=== PATIENT | female | born 1960 | race African-American/Black ===

== ENCOUNTER 2022-03-20 18:58 | Inpatient (IN) | payer MEDICAID, OTHER ==
[~2022-03-20] VITALS: Ht 165.1 cm; Wt 74.8 kg
[2022-03-20] MEDS ORDERED: SODIUM CHLORIDE 0.9% 1,000 ML IV ONE (22:30)
[2022-03-21 00:08] LABS: BASOPHILS % 0.5 % (0.0-2.0); EOSINOPHILS % 0.6 % (0.0-5.0); HEMATOCRIT. 36.6 % (36.0-48.0); HEMOGLOBIN. 12.2 g/dL (12.0-16.0); LYMPHOCYTES % 19.4 % (20.0-50.0); MEAN CORPUSCULAR HEMOGLOBIN 28.5 pg (28.0-32.0); MEAN CORPUSCULAR VOLUME 85.6 fL (81.0-99.0); MEAN PLATELET VOLUME 7.2 fl (7.4-10.4); MONOCYTES % 6.4 % (2.0-8.0); NEUTROPHILS % 73.1 % (40.0-76.0); PLATELET 236 x1000/uL (130-400); RED BLOOD CELL COUNT 4.28 mill/uL (4.2-5.4); RED CELL DISTRIBUTION WIDTH 17.1 % (11.6-14.6)
[2022-03-21 00:13] LABS: CLARITY URINE CLEAR (CLEAR); COLOR URINE YELLOW (YELLOW); KETONES URINE NEGATIVE (NEGATIVE); LEUKOCYTE ESTERASE URINE NEGATIVE (NEGATIVE); NITRITE URINE NEGATIVE (NEGATIVE); OCCULT BLOOD URINE NEGATIVE (NEGATIVE); PH URINE 6.5 (4.5-8.0); PROTEIN URINE TRACE (NEGATIVE); SPECIFIC GRAVITY URINE 1.011 (1.005-1.030)
[2022-03-21 00:20] LABS: PARTIAL THROMBOPLASTIN TIME 26.9 sec (23.4-31.0); PROTHROMBIN TIME 10.9 sec (9.6-11.0)
[2022-03-21 00:24] LABS: CHLORIDE 107 mEq/L (98-107)
[2022-03-21 00:38] LABS: ETHANOL BLOOD < 10 mg/dL
[2022-03-21] MEDS ORDERED: POTASSIUM CHLORIDE 20MEQ TABLET SR PO ONE (00:45)
[2022-03-21 00:54] LABS: *AMPHETAMINES SCREEN URINE NEGATIVE (NEGATIVE); *BARBITURATES SCREEN URINE NEGATIVE (NEGATIVE); *BENZODIAZEPINES SCREEN URINE PRESUMTIVE POSITIVE (NEGATIVE); *COCAINE SCREEN URINE PRESUMTIVE POSITIVE (NEGATIVE); CANNABINOID URINE SCREEN NEGATIVE (NEGATIVE); METHADONE URINE SCREEN NEGATIVE (NEGATIVE); OPIATES URINE SCREEN PRESUMTIVE POSITIVE (NEGATIVE); PHENCYCLIDINE URINE SCREEN NEGATIVE (NEGATIVE)
[2022-03-21] MEDS ORDERED: ASPIRIN 81MG TABLET PO ONE (02:00)
[2022-03-21 08:30] VITALS: BP 131/86
[2022-03-21] MEDS ORDERED: ACETAMINOPHEN 325MG TABLET PO PRN (09:30)
[2022-03-21] MEDS ORDERED: DIPHENHYDRAMINE 50MG/ML VIAL IV PRN (09:30)
[2022-03-21] MEDS ORDERED: CLONIDINE 0.1MG TABLET PO PRN (09:30)
[2022-03-21] MEDS ORDERED: ONDANSETRON HCL 4MG/2ML INJ IV PRN (09:30)
[2022-03-21 10:46] VITALS: BP 131/86
[2022-03-21] MEDS ORDERED: INFLUENZA VACCINE 05/PF 0.5 ML SYRINGE IM ONE (11:00)
[2022-03-21 12:21] VITALS: BP 129/82
[2022-03-21 16:26] VITALS: BP 123/84
[2022-03-21] MEDS: IPRATROPIUM/ALBUTEROL 0.5-3(2.5)MG/3ML NEB HHN PRN (17:13)
[2022-03-21 20:00] VITALS: BP 130/83
[2022-03-21 23:55] VITALS: BP 124/68
[2022-03-22 03:57] VITALS: BP 175/93
[2022-03-22 07:26] LABS: BASOPHILS % 0.4 % (0.0-2.0); EOSINOPHILS % 4.3 % (0.0-5.0); HEMATOCRIT. 38.5 % (36.0-48.0); LYMPHOCYTES % 29.7 % (20.0-50.0); MEAN CORPUSCULAR HEMOGLOBIN 29.1 pg (28.0-32.0); MEAN CORPUSCULAR VOLUME 86.1 fL (81.0-99.0); MEAN PLATELET VOLUME 7.3 fl (7.4-10.4); MONOCYTES % 8.1 % (2.0-8.0); NEUTROPHILS % 57.5 % (40.0-76.0); PLATELET 245 x1000/uL (130-400); RED BLOOD CELL COUNT 4.47 mill/uL (4.2-5.4); RED CELL DISTRIBUTION WIDTH 16.9 % (11.6-14.6)
[2022-03-22 08:00] VITALS: BP 143/97
[2022-03-22] MEDS: IPRATROPIUM/ALBUTEROL 0.5-3(2.5)MG/3ML NEB HHN PRN (08:25)
[2022-03-22 10:42] LABS: CHLORIDE 104 mEq/L (98-107)
[2022-03-22 12:00] VITALS: BP 113/60
[2022-03-22] MEDS ORDERED: BENZONATATE 100MG CAPSULE PO PRN (13:15)
[2022-03-22] MEDS: GUAIFENESIN 600MG ER TABLET PO SCH ×2 (13:17→21:56)
[2022-03-22 14:39] LABS: AMYLASE 50 IU/L (25-115)
[2022-03-22 16:00] VITALS: BP 157/89
[2022-03-22] MEDS: METHYLPREDNISOLONE SOD SUCC 125 MG/2 ML VIAL IV SCH (17:20)
[2022-03-22 20:00] VITALS: BP 144/85
[2022-03-22] MEDS: IPRATROPIUM/ALBUTEROL 0.5-3(2.5)MG/3ML NEB HHN SCH (20:02)
[2022-03-22] MEDS ORDERED: SULFAMETHOXAZOLE/TRIMETHOPRIM 800/160MG TABLET PO SCH (22:00)
[2022-03-23] VITALS: BP 150/88
[2022-03-23] MEDS: IPRATROPIUM/ALBUTEROL 0.5-3(2.5)MG/3ML NEB HHN SCH (01:20)
[2022-03-23] MEDS: METHYLPREDNISOLONE SOD SUCC 125 MG/2 ML VIAL IV SCH ×2 (01:21→05:34)
[2022-03-23 04:45] VITALS: BP 139/89
[2022-03-23 08:35] LABS: BASOPHILS % 0.4 % (0.0-2.0); HEMATOCRIT. 41.2 % (36.0-48.0); HEMOGLOBIN. 13.9 g/dL (12.0-16.0); LYMPHOCYTES % 13.3 % (20.0-50.0); MEAN CORPUSCULAR HEMOGLOBIN 28.4 pg (28.0-32.0); MEAN CORPUSCULAR VOLUME 83.9 fL (81.0-99.0); MEAN PLATELET VOLUME 7.6 fl (7.4-10.4); MONOCYTES % 4.5 % (2.0-8.0); NEUTROPHILS % 81.8 % (40.0-76.0); PLATELET 302 x1000/uL (130-400); RED BLOOD CELL COUNT 4.91 mill/uL (4.2-5.4); RED CELL DISTRIBUTION WIDTH 16.8 % (11.6-14.6)
[2022-03-23 10:36] LABS: CHLORIDE 103 mEq/L (98-107)
== END 2022-03-23 10:02 | disposition left against medical advice (07) | DRG 816 ==
LOC: ER 18:58 → 8WST 03-21 03:18 → EDBEDREQTM 03-21 03:20 → EDBEDREQ 03-21 03:20
PROVIDERS: ADMIT Internal Medicine; ATTEND Internal Medicine
DX: T40.5X1A Poisoning by cocaine, accidental (unintentional), initial encounter (principal); J96.00 Acute respiratory failure, unspecified whether with hypoxia or hypercapnia; G92.8 Other toxic encephalopathy; J68.0 Bronchitis and pneumonitis due to chemicals, gases, fumes and vapors; K83.8 Other specified diseases of biliary tract; E87.6 Hypokalemia; I10 Essential (primary) hypertension; F17.210 Nicotine dependence, cigarettes, uncomplicated; F14.10 Cocaine abuse, uncomplicated; Y92.89 Other specified places as the place of occurrence of the external cause; Z53.29 Procedure and treatment not carried out because of patient's decision for other reasons
CPT/HCPCS: 36415; 71045; 76700; 80048; 80053; 80076; 80305; 80320; 81003; 82150; 83880; 84484; 85025; 90686; 93005; 93970; 94640; 99285; J2930; J7030; G0480

== ENCOUNTER 2023-10-18 16:07 | Emergency (ER) | payer MEDICAID, OTHER ==
[~2023-10-18] VITALS: Ht 167.6 cm; Wt 70.0 kg
[2023-10-18 16:07] VITALS: O2SAT 100
[2023-10-18] MEDS ORDERED: PREDNISONE 20MG TABLET PO STA (16:37)
[2023-10-18] MEDS: ALBUTEROL (0.083%) 2.5MG/3ML NEB HHN STA (17:16)
[2023-10-18] MEDS: IPRATROPIUM BROMIDE (0.02%) 0.5MG/2.5ML NEB HHN STA (17:16)
[2023-10-18 18:53] LABS: CHLORIDE 103 mEq/L (98-107); POTASSIUM 4.9 mEq/L (3.5-5.1); SODIUM 142 mEq/L (136-145)
[2023-10-18 18:54] LABS: CARBON DIOXIDE 36 mEq/L (21-32)
[2023-10-18 18:55] LABS: CALCIUM 9.7 mg/dL (8.7-10.4)
[2023-10-18 18:59] LABS: CREATININE 0.8 mg/dL (0.6-1.0); GLUCOSE 91 mg/dL (70-105); UREA NITROGEN BLOOD 13 mg/dL (9-23)
[2023-10-18 19:00] LABS: TROPONIN I HIGH SENSITIVITY 4 ng/L (3.0-34)
[2023-10-18] MEDS: PREDNISONE 20MG TABLET PO NR (19:03)
[2023-10-18 19:22] LABS: HEMATOCRIT. 43.7 % (36.0-48.0); HEMOGLOBIN. 14.8 g/dL (12.0-16.0); MEAN CORPUSCULAR HEMOGLOBIN 28.5 pg (28.0-32.0); MEAN CORPUSCULAR HGB CONC 33.9 g/dL (31.0-37.0); MEAN PLATELET VOLUME 8.6 fl (7.4-10.4); PLATELET 259 x1000/uL (130-400); RED CELL DISTRIBUTION WIDTH 16.2 % (11.6-14.6); WHITE BLOOD COUNT 7.5 x1000/uL (4.5-11.0)
[2023-10-18 19:23] LABS: DIFFERENTIAL COMMENT 1
[2023-10-18 19:53] VITALS: BP 106/54; PULSE 77; RESP 14; TEMP 97.8
[2023-10-18] MEDS ORDERED: P50 MT (19:54)
[2023-10-18] MEDS ORDERED: ALBU6.7H15 INH (19:54)
[2023-10-18 20:56] LABS: ANISOCYTOSIS 1+; PLATELET ESTIMATE NORMAL
== END 2023-10-18 20:02 | disposition home or self-care (01) ==
LOC: ER 16:07
DX: J44.1 Chronic obstructive pulmonary disease with (acute) exacerbation (principal); F14.10 Cocaine abuse, uncomplicated; F12.10 Cannabis abuse, uncomplicated; I10 Essential (primary) hypertension
CPT/HCPCS: 80048; 83880; 85025; 84484; 36415; 71045; 99285; J7512; Z7610

== ENCOUNTER 2024-10-24 09:05 | Inpatient (IN) | payer MEDICAID, OTHER ==
[~2024-10-24] VITALS: Ht 167.6 cm; Wt 58.5 kg
[2024-10-24] MEDS: IPRATROPIUM/ALBUTEROL 0.5-3(2.5)MG/3ML NEB HHN SCH (04:20)
[~2024-10-24 09:05] MED LIST: ALBU6.7H15 INH; P50 MT
[2024-10-24] MEDS: SODIUM CHLORIDE 0.9% (SEPSIS BOLUS) IV ONE (09:36)
[2024-10-24 09:45] LABS: BASOPHILS % 0.2 % (0.0-2.0); HEMATOCRIT. 37.1 % (36.0-48.0); HEMOGLOBIN. 11.9 g/dL (12.0-16.0); LYMPHOCYTES % 7.6 % (20.0-50.0); MEAN CORPUSCULAR HEMOGLOBIN 27.2 pg (28.0-32.0); MEAN CORPUSCULAR HGB CONC 32.2 g/dL (31.0-37.0); MEAN CORPUSCULAR VOLUME 84.5 fL (81.0-99.0); MONOCYTES % 5.6 % (2.0-8.0); NEUTROPHILS % 86.6 % (40.0-76.0); PLATELET 204 x1000/uL (130-400); RED BLOOD CELL COUNT 4.39 mill/uL (4.2-5.4); RED CELL DISTRIBUTION WIDTH 19.5 % (11.6-14.6); WHITE BLOOD COUNT 9.2 x1000/uL (4.5-11.0)
[2024-10-24] MEDS: PIPERACILLIN/TAZO 3.375G/50ML 50 ML IV ONE (09:53)
[2024-10-24 09:54] LABS: CHLORIDE 105 mEq/L (98-107); POTASSIUM 4.7 mEq/L (3.5-5.1); SODIUM 145 mEq/L (136-145)
[2024-10-24 09:55] LABS: CALCIUM 9.3 mg/dL (8.7-10.4); CARBON DIOXIDE 34 mEq/L (21-32)
[2024-10-24 10:00] LABS: GLUCOSE 138 mg/dL (70-105); TROPONIN I HIGH SENSITIVITY 29 ng/L (3.0-34)
[2024-10-24 10:01] LABS: UREA NITROGEN BLOOD 20 mg/dL (9-23)
[2024-10-24 10:02] LABS: ALANINE AMINOTRANSFERASE 59 IU/L (10-49); ALBUMIN 3.8 g/dL (3.2-4.8); ASPARTATE AMINOTRANSFERASE 70 IU/L (<34); BILIRUBIN DIRECT 0.1 mg/dL (<=3.0)
[2024-10-24 10:03] LABS: BILIRUBIN TOTAL 0.4 mg/dL (0.1-1.0); PROTEIN TOTAL 6.4 g/dL (6.0-8.3)
[2024-10-24 10:09] LABS: CREATININE 2.1 mg/dL (0.6-1.0)
[2024-10-24 10:10] LABS: LACTIC ACID 3.3 mmol/L (0.4-2.0)
[2024-10-24] MEDS: VANCOMYCIN 1G PREMIX 200 ML IV ONE (10:33)
[2024-10-24] MEDS ORDERED: ONDANSETRON HCL 4MG/2ML INJ IV PRN (11:45)
[2024-10-24] MEDS ORDERED: ACETAMINOPHEN 325MG TABLET PO PRN (11:45)
[2024-10-24] MEDS ORDERED: IPRATROPIUM/ALBUTEROL 0.5-3(2.5)MG/3ML NEB HHN PRN (11:45)
[2024-10-24] MEDS ORDERED: CLONIDINE 0.1MG TABLET PO PRN (11:45)
[2024-10-24] MEDS ORDERED: DOCUSATE SODIUM 100MG CAPSULE PO PRN (11:45)
[2024-10-24 12:27] VITALS: BP 92/66; PULSE 58; RESP 18; TEMP 36.6
[2024-10-24 12:30] VITALS: BP 92/66; PULSE 58; RESP 18; TEMP 36.6; O2SAT 99
[2024-10-24] MEDS: SODIUM CHLORIDE 0.45% 1,000 ML IV SCH (13:28)
[2024-10-24] MEDS: PANTOPRAZOLE SODIUM 40 MG/VIAL IV SCH (13:28)
[2024-10-24 16:25] VITALS: BP 118/76; PULSE 84; RESP 18; TEMP 36.6; O2SAT 98
[2024-10-24 17:39] LABS: CREATINE KINASE MB FRACTION 80.9 ng/mL (0.5-3.6); ETHANOL BLOOD < 10 mg/dL (<10)
[2024-10-24 17:44] LABS: T4 FREE 0.89 ng/dL (0.89-1.76); THYROID STIMULATING HORMONE 0.16 uIU/mL (0.55-4.78)
[2024-10-24 18:02] LABS: COLOR URINE YELLOW (YELLOW); GLUCOSE URINE NEGATIVE (NEGATIVE); KETONES URINE NEGATIVE (NEGATIVE); LEUKOCYTE ESTERASE URINE NEGATIVE (NEGATIVE); NITRITE URINE NEGATIVE (NEGATIVE); OCCULT BLOOD URINE 3+ (NEGATIVE); PROTEIN URINE 1+ (NEGATIVE); SPECIFIC GRAVITY URINE 1.015 (1.005-1.030); UROBILINOGEN URINE 0.2 E.U./dL (0.2-1.0)
[2024-10-24 18:21] LABS: *AMPHETAMINES SCREEN URINE NEGATIVE (NEGATIVE); *BARBITURATES SCREEN URINE NEGATIVE (NEGATIVE); *BENZODIAZEPINES SCREEN URINE NEGATIVE (NEGATIVE); *COCAINE SCREEN URINE PRESUMPTIVE POSITIVE (NEGATIVE); CANNABINOID URINE SCREEN NEGATIVE (NEGATIVE); ECSTASY MDMA SCREEN URINE NEGATIVE (NEGATIVE); METHADONE URINE SCREEN NEGATIVE (NEGATIVE); OPIATES URINE SCREEN PRESUMPTIVE POSITIVE (NEGATIVE); PHENCYCLIDINE URINE SCREEN NEGATIVE (NEGATIVE)
[2024-10-24 18:23] LABS: CLARITY URINE HAZY (CLEAR)
[2024-10-24 18:24] LABS: RBC URINE NONE SEEN /hpf (0-2); WBC URINE 0-2 /hpf (0-2)
[2024-10-24 18:25] LABS: BACTERIA URINE TRACE; SQUAMOUS EPITHELIAL CELL URINE 1+ /lpf (RARE/1+)
[2024-10-24 18:26] LABS: MUCUS URINE TRACE /lpf (< = 2+)
[2024-10-24] MEDS: ASPIRIN 81MG TABLET PO SCH (18:45)
[2024-10-24] MEDS: ENOXAPARIN 60MG/0.6ML SYR SUBCUT SCH (18:46)
[2024-10-24 20:00] VITALS: BP 127/80; PULSE 60; RESP 17; TEMP 37.7; O2SAT 100
[2024-10-25] VITALS: BP 129/59; PULSE 65; RESP 17; TEMP 37.2; O2SAT 96
[2024-10-25 00:45] LABS: CREATINE KINASE MB FRACTION 62.5 ng/mL (0.5-3.6)
[2024-10-25 04:00] VITALS: BP 145/82; PULSE 105; RESP 18; TEMP 37.2; O2SAT 95
[2024-10-25] MEDS: ACETAMINOPHEN 325MG TABLET PO PRN (06:20)
[2024-10-25 06:35] LABS: BASOPHILS % 1.1 % (0.0-2.0); EOSINOPHILS % 0.8 % (0.0-5.0); HEMATOCRIT. 38.4 % (36.0-48.0); HEMOGLOBIN. 12.5 g/dL (12.0-16.0); LYMPHOCYTES % 33.5 % (20.0-50.0); MEAN CORPUSCULAR HEMOGLOBIN 27.5 pg (28.0-32.0); MEAN CORPUSCULAR HGB CONC 32.4 g/dL (31.0-37.0); MEAN CORPUSCULAR VOLUME 84.7 fL (81.0-99.0); MEAN PLATELET VOLUME 7.4 fl (7.4-10.4); MONOCYTES % 7.1 % (2.0-8.0); NEUTROPHILS % 57.5 % (40.0-76.0); PLATELET 186 x1000/uL (130-400); RED BLOOD CELL COUNT 4.53 mill/uL (4.2-5.4); RED CELL DISTRIBUTION WIDTH 19.1 % (11.6-14.6); WHITE BLOOD COUNT 5.5 x1000/uL (4.5-11.0)
[2024-10-25 06:50] LABS: CALCIUM 8.4 mg/dL (8.7-10.4); CARBON DIOXIDE 31 mEq/L (21-32); CHLORIDE 103 mEq/L (98-107); POTASSIUM 4.3 mEq/L (3.5-5.1); SODIUM 140 mEq/L (136-145)
[2024-10-25 06:55] LABS: CREATININE 0.9 mg/dL (0.6-1.0); GLUCOSE 115 mg/dL (70-105); PROTEIN TOTAL 5.7 g/dL (6.0-8.3)
[2024-10-25 06:56] LABS: LDL CHOLESTEROL 100 mg/dL (5-100); TRIGLYCERIDE 97 mg/dL (0-150); UREA NITROGEN BLOOD 16 mg/dL (9-23)
[2024-10-25 06:57] LABS: ALANINE AMINOTRANSFERASE 204 IU/L (10-49); ALBUMIN 3.3 g/dL (3.2-4.8); ASPARTATE AMINOTRANSFERASE 274 IU/L (<34); CHOLESTEROL 182 mg/dL (<200); HDL CHOLESTEROL 62 mg/dL (>65); INR 1.1; PROTHROMBIN TIME 11.8 sec (9.6-11.0)
[2024-10-25 06:58] LABS: BILIRUBIN DIRECT 0.1 mg/dL (<=3.0); BILIRUBIN TOTAL 0.4 mg/dL (0.1-1.0); PHOSPHORUS 1.7 mg/dL (2.5-4.9)
[2024-10-25 08:00] VITALS: BP 140/92; PULSE 92; RESP 18; TEMP 36.7; O2SAT 96
[2024-10-25 12:00] VITALS: BP 143/85; PULSE 96; RESP 18; TEMP 36.9; O2SAT 95
[2024-10-25 16:00] VITALS: BP 131/96; PULSE 95; RESP 19; TEMP 36.6; O2SAT 97
[2024-10-25 20:00] VITALS: BP 148/91; PULSE 80; RESP 18; TEMP 36.6; O2SAT 100
[2024-10-25] MEDS: SODIUM PHOSPHATE 10 MMOL in DEXT 5% WATER 246.6667 ML IV SCH (20:05)
[2024-10-25] MEDS: MAGNESIUM 2 G PREMIX 50 ML IV SCH (20:05)
[2024-10-25 20:59] LABS: HEPATITIS B SURFACE ANTIGEN NEGATIVE (Negative)
[2024-10-25 21:21] LABS: HEPATITIS A AB IGM NEGATIVE (Negative); HEPATITIS B CORE AB IGM NEGATIVE (Negative); HEPATITIS C AB NON REACTIVE (Neg) (Negative)
[2024-10-26] VITALS (8 sets, daily range): BP systolic 133–168; BP diastolic 48–89; PULSE 60–100; RESP 14–20; TEMP 36.2–36.7; O2SAT 94–99
[2024-10-26 05:59] LABS: BASOPHILS % 1.2 % (0.0-2.0); EOSINOPHILS % 1.7 % (0.0-5.0); HEMATOCRIT. 40.2 % (36.0-48.0); HEMOGLOBIN. 13.2 g/dL (12.0-16.0); LYMPHOCYTES % 39.2 % (20.0-50.0); MEAN CORPUSCULAR HEMOGLOBIN 27.2 pg (28.0-32.0); MEAN CORPUSCULAR HGB CONC 32.8 g/dL (31.0-37.0); MEAN PLATELET VOLUME 7.9 fl (7.4-10.4); MONOCYTES % 8.3 % (2.0-8.0); NEUTROPHILS % 49.6 % (40.0-76.0); PLATELET 195 x1000/uL (130-400); RED BLOOD CELL COUNT 4.84 mill/uL (4.2-5.4); RED CELL DISTRIBUTION WIDTH 18.6 % (11.6-14.6); WHITE BLOOD COUNT 5.4 x1000/uL (4.5-11.0)
[2024-10-26 06:19] LABS: CALCIUM 9.2 mg/dL (8.7-10.4); CHLORIDE 102 mEq/L (98-107); POTASSIUM 3.5 mEq/L (3.5-5.1); SODIUM 141 mEq/L (136-145)
[2024-10-26 06:20] LABS: CARBON DIOXIDE 36 mEq/L (21-32)
[2024-10-26 06:24] LABS: ALANINE AMINOTRANSFERASE 162 IU/L (10-49); ALBUMIN 3.4 g/dL (3.2-4.8); ASPARTATE AMINOTRANSFERASE 164 IU/L (<34); CREATININE 0.8 mg/dL (0.6-1.0); GLUCOSE 107 mg/dL (70-105)
[2024-10-26 06:25] LABS: UREA NITROGEN BLOOD 15 mg/dL (9-23)
[2024-10-26 06:27] LABS: BILIRUBIN TOTAL 0.5 mg/dL (0.1-1.0); CREATINE KINASE > 1300 IU/L (34-145); PROTEIN TOTAL 5.7 g/dL (6.0-8.3)
[2024-10-26] MEDS: AMLODIPINE 5MG TABLET PO SCH (11:51)
[2024-10-26] MEDS: ENOXAPARIN 40MG/0.4ML SYR SUBCUT SCH (12:47)
[2024-10-26] MEDS ORDERED: NALOXONE HCL 0.4MG/ML VIAL IV PRN (15:45)
[2024-10-26] MEDS: HYDROCODONE/ACETAMINOPHEN 5/325MG TABLET PO PRN (17:04)
[2024-10-27] VITALS (7 sets, daily range): BP systolic 114–154; BP diastolic 78–86; PULSE 72–90; RESP 18–20; TEMP 36.4–36.8; O2SAT 96–100
[2024-10-28] VITALS: BP 139/89; PULSE 83; RESP 18; TEMP 36.9; O2SAT 98
[2024-10-28 07:51] LABS: BASOPHILS % 0.9 % (0.0-2.0); EOSINOPHILS % 0.9 % (0.0-5.0); HEMATOCRIT. 35.2 % (36.0-48.0); HEMOGLOBIN. 11.9 g/dL (12.0-16.0); LYMPHOCYTES % 33.5 % (20.0-50.0); MEAN CORPUSCULAR HEMOGLOBIN 28.3 pg (28.0-32.0); MEAN CORPUSCULAR HGB CONC 33.7 g/dL (31.0-37.0); MEAN CORPUSCULAR VOLUME 84.1 fL (81.0-99.0); MEAN PLATELET VOLUME 7.4 fl (7.4-10.4); MONOCYTES % 8.3 % (2.0-8.0); NEUTROPHILS % 56.4 % (40.0-76.0); PLATELET 223 x1000/uL (130-400); RED BLOOD CELL COUNT 4.19 mill/uL (4.2-5.4); RED CELL DISTRIBUTION WIDTH 18.8 % (11.6-14.6)
[2024-10-28 08:00] VITALS: BP 134/71; PULSE 90; RESP 17; TEMP 36.7; O2SAT 94
[2024-10-28 08:20] VITALS: PULSE 93; RESP 18; O2SAT 97
[2024-10-28 08:28] LABS: CHLORIDE 100 mEq/L (98-107); POTASSIUM 3.4 mEq/L (3.5-5.1); SODIUM 139 mEq/L (136-145)
[2024-10-28 08:29] LABS: CALCIUM 9.4 mg/dL (8.7-10.4); CARBON DIOXIDE 30 mEq/L (21-32)
[2024-10-28 08:34] LABS: CREATININE 0.7 mg/dL (0.6-1.0); GLUCOSE 131 mg/dL (70-105); UREA NITROGEN BLOOD 13 mg/dL (9-23)
[2024-10-28] MEDS: FAMOTIDINE 20MG/2ML VIAL IV SCH (08:43)
[2024-10-28] MEDS: AMLODIPINE 10MG TABLET PO SCH (08:44)
[2024-10-28 08:46] LABS: CREATINE KINASE 2006 IU/L (34-145)
[2024-10-28 12:00] VITALS: BP 124/68; PULSE 84; RESP 16; TEMP 36.6; O2SAT 95
[2024-10-28] MEDS ORDERED: IOHEXOL-350 100 ML BOTTLE ONE (12:30)
[2024-10-28] MEDS: POTASSIUM CHLORIDE 20MEQ TABLET SR PO SCH (13:02)
[2024-10-28 16:00] VITALS: BP 131/75; PULSE 80; RESP 17; TEMP 36.8; O2SAT 95
[2024-10-28 20:00] VITALS: BP 137/101; PULSE 88; RESP 20; TEMP 37.1; O2SAT 96
[2024-10-29] VITALS (8 sets, daily range): BP systolic 108–130; BP diastolic 62–77; PULSE 60–77; RESP 16–20; TEMP 36.3–36.8; O2SAT 96–100
[2024-10-29 12:27] LABS: CREATINE KINASE 1242 IU/L (34-145)
[2024-10-29 14:32] LABS: PHOSPHORUS 2.1 mg/dL (2.5-4.9)
[2024-10-30] VITALS: BP 57/28; PULSE 71; RESP 18; TEMP 36.2; O2SAT 96
[2024-10-30 04:00] VITALS: BP 112/41; PULSE 85; RESP 18; TEMP 36.8; O2SAT 100
[2024-10-30 08:00] VITALS: BP 108/58; PULSE 18; PULSE 55; RESP 18; TEMP 36.5; O2SAT 100
[2024-10-30] MEDS ORDERED: NITROGLYCERIN 0.4MG TABLET SL SL PRN (09:15)
[2024-10-30] MEDS ORDERED: MAGNESIUM 2 G PREMIX 50 ML IV NR (09:15)
[2024-10-30 10:59] LABS: BASOPHILS % 0.7 % (0.0-2.0); EOSINOPHILS % 1.6 % (0.0-5.0); HEMATOCRIT. 32.4 % (36.0-48.0); HEMOGLOBIN. 10.5 g/dL (12.0-16.0); LYMPHOCYTES % 36.1 % (20.0-50.0); MEAN CORPUSCULAR HEMOGLOBIN 27.1 pg (28.0-32.0); MEAN CORPUSCULAR HGB CONC 32.5 g/dL (31.0-37.0); MEAN CORPUSCULAR VOLUME 83.4 fL (81.0-99.0); MEAN PLATELET VOLUME 7.2 fl (7.4-10.4); MONOCYTES % 8.2 % (2.0-8.0); NEUTROPHILS % 53.4 % (40.0-76.0); PLATELET 253 x1000/uL (130-400); RED BLOOD CELL COUNT 3.88 mill/uL (4.2-5.4); RED CELL DISTRIBUTION WIDTH 18.9 % (11.6-14.6); WHITE BLOOD COUNT 5.1 x1000/uL (4.5-11.0)
[2024-10-30] MEDS ORDERED: POTASSIUM PHOSPHATE 20 MMOL in DEXT 5% WATER 243.3333 ML IV NR (11:00)
[2024-10-30 11:01] LABS: CHLORIDE 103 mEq/L (98-107); POTASSIUM 3.8 mEq/L (3.5-5.1); SODIUM 140 mEq/L (136-145)
[2024-10-30 11:02] LABS: CALCIUM 8.8 mg/dL (8.7-10.4); CARBON DIOXIDE 30 mEq/L (21-32); CARBON DIOXIDE 31 mEq/L (21-32)
[2024-10-30 11:03] LABS: CALCIUM 8.8 mg/dL (8.7-10.4)
[2024-10-30 11:07] LABS: CREATININE 0.7 mg/dL (0.6-1.0); GLUCOSE 148 mg/dL (70-105); GLUCOSE 150 mg/dL (70-105); UREA NITROGEN BLOOD 14 mg/dL (9-23)
[2024-10-30 11:08] LABS: CREATINE KINASE 703 IU/L (34-145); TROPONIN I HIGH SENSITIVITY 5 ng/L (3.0-34); UREA NITROGEN BLOOD 14 mg/dL (9-23)
[2024-10-30 11:09] LABS: ALANINE AMINOTRANSFERASE 77 IU/L (10-49); ALBUMIN 3.3 g/dL (3.2-4.8); ASPARTATE AMINOTRANSFERASE 43 IU/L (<34); PHOSPHORUS 2.6 mg/dL (2.5-4.9)
[2024-10-30 11:10] LABS: BILIRUBIN TOTAL 0.5 mg/dL (0.1-1.0); PROTEIN TOTAL 5.6 g/dL (6.0-8.3)
[2024-10-30 12:00] VITALS: BP 124/65; PULSE 94; RESP 18; TEMP 35.9; O2SAT 98
[2024-10-30 12:16] VITALS: BP 124/65; PULSE 94; TEMP 96.4; O2SAT 98
== END 2024-10-30 13:15 | disposition home or self-care (01) | DRG 812 ==
LOC: ER 09:05 → 8WST 11:37 → EDBEDREQTM 11:40 → EDBEDREQ 11:40 → ENRESERV 11:51
PROVIDERS: ADMIT Internal Medicine; ATTEND Internal Medicine
DX: T50.991A Poisoning by other drugs, medicaments and biological substances, accidental (unintentional), initial encounter (principal); J96.01 Acute respiratory failure with hypoxia; N17.0 Acute kidney failure with tubular necrosis; I21.4 Non-ST elevation (NSTEMI) myocardial infarction; G92.9 Unspecified toxic encephalopathy; E44.1 Mild protein-calorie malnutrition; E87.20 Acidosis, unspecified; I95.9 Hypotension, unspecified; E83.39 Other disorders of phosphorus metabolism; M62.82 Rhabdomyolysis; J90 Pleural effusion, not elsewhere classified; R29.6 Repeated falls; D64.9 Anemia, unspecified; I10 Essential (primary) hypertension; M19.09 Primary osteoarthritis, other specified site; E05.90 Thyrotoxicosis, unspecified without thyrotoxic crisis or storm; E83.42 Hypomagnesemia; F14.10 Cocaine abuse, uncomplicated; E86.0 Dehydration; R74.01 Elevation of levels of liver transaminase levels; N28.1 Cyst of kidney, acquired; F19.10 Other psychoactive substance abuse, uncomplicated; J44.89 Other specified chronic obstructive pulmonary disease; Z87.891 Personal history of nicotine dependence; Z79.82 Long term (current) use of aspirin; Y92.89 Other specified places as the place of occurrence of the external cause; Z68.20 Body mass index [BMI] 20.0-20.9, adult
CPT/HCPCS: 36415; 70551; 71045; 71275; 72170; 73120; 76700; 78580; 80048; 80053; 80061; 80076; 80305; 80320; 81003; 82550; 82553; 83036; 83605; 83735; 83880; 84100; 84145; 84439; 84443; 84480; 84484; 85025; 85379; 86038; 86705; 86709; 87340; 93005; 93306; 93970; 94070; 94640; 94664; 96365; 96368; 98960; 99291; J1308; J1650; J2470; J2543; J3370; J3475; J3490; J7030; J7060; Q9967; G0480